=== PATIENT | female | born 1955 | race Caucasian/White ===

== ENCOUNTER → 2018-05-15 | Outpatient (CLI) | payer BC ==
--- NOTE | 2018-05-18 09:16 | MM ---
Reason for exam: screening (asymptomatic). Last mammogram was performed 4 years ago. History: Patient is postmenopausal and had first child at age 46. Benign left mammotome panel of the left breast, October 09, 2007. Took hormonal contraceptives for 2 months beginning at age 22. Physical Findings: A clinical breast exam by your physician is recommended on an annual basis and results should be correlated with mammographic findings. MG 3D Screening Mammo W/Cad Bilateral CC and MLO view(s) were taken. Prior study comparison: May 26, 2014, bilateral MG screening mammo w CAD. October 02, 2012, bilateral digital screening mammo w/CAD. The breast tissue is heterogeneously dense. This may lower the sensitivity of mammography. Previous mammotome biopsy in the left breast. There is no discrete abnormality. No significant changes when compared with prior studies. ASSESSMENT: Benign, BI-RAD 2 RECOMMENDATION: Routine screening mammogram of both breasts in 1 year.
== END | disposition home or self-care (01) ==
LOC: RADMAMWWP 11:38
PROVIDERS: ATTEND Family Medicine
DX: Z12.31 Encounter for screening mammogram for malignant neoplasm of breast (principal)
CPT/HCPCS: 77063; 77067

== ENCOUNTER → 2018-10-06 | Outpatient (CLI) | payer OTHER ==
--- NOTE | 2018-10-06 14:29 | XR ---
EXAMINATION TYPE: XR calcaneus 2V LT DATE OF EXAM: 10/06/2018 COMPARISON: NONE HISTORY: Pain TECHNIQUE: 2 views submitted FINDINGS: There is a moderate-sized plantar calcaneal spur. Osseous structures intact. Joint spaces p reserved. IMPRESSION: Plantar calcaneal spur. Can occasionally be associated with plantar fasciitis correlate c jenniferically.
== END | disposition home or self-care (01) ==
LOC: RADXRMAIN 13:22
PROVIDERS: ATTEND Family Medicine
DX: M72.2 Plantar fascial fibromatosis (principal); M77.32 Calcaneal spur, left foot; M79.673 Pain in unspecified foot

== ENCOUNTER → 2021-04-06 | Outpatient (CLI) | payer OTHER ==
[2021-04-06 17:08] LABS: Basophils # (A) 0.03 X 10*3/uL (0.00-0.10); Basophils % (A) 0.6 %; Eosinophils # (A) 0.24 X 10*3/uL (0.04-0.35); Eosinophils % (A) 4.7 %; HCT 43.5 % (37.2-46.3); Lymphocytes # (A) 1.25 X 10*3/uL (0.90-5.00); Lymphocytes % (A) 24.6 %; MCH 31.6 pg (27.0-32.0); MCHC 32.2 g/dL (32.0-37.0); MCV 98.2 fL (80.0-97.0); Mean Platelet Volume 11.1 fL (9.5-12.2); Monocytes # (A) 0.53 X 10*3/uL (0.20-1.00); Monocytes % (A) 10.4 %; Neutrophils # (A) 3.02 X 10*3/uL (1.80-7.70); Neutrophils % (A) 59.3 %; Platelet Count 203 X 10*3/uL (140-440); RBC 4.43 X 10*6/uL (4.10-5.20); WBC 5.09 X 10*3/uL (4.50-10.00)
[2021-04-06 20:24] LABS: Hemoglobin A1C 4.8 % (4.0-6.0)
[2021-04-06 22:30] LABS: African American GFR (CKD) 68.9 (60.0-200.0); Albumin 4.6 g/dL (3.80-4.90); Bilirubin, Conjugated 0.2 mg/dL (0.20-0.40); Bilirubin,Unconjugated 0.5 mg/dL; Calcium 9.6 mg/dL (8.7-10.3); Chol/HDL Ratio 2.81; Globulin 2.3 g/dL (1.6-3.3); LDL Cholesterol,Calculated 139.4 mg/dL (0.0-131.0); Non-African American GFR(CKD) 59.5 (60.0-200.0); Potassium 4.8 mmol/L (3.5-5.5); Total Bilirubin 0.7 mg/dL (0.2-1.2); Total Protein 6.9 g/dL (6.2-8.2); VLDL Calculation 16.6 mg/dL (5.00-40.00)
== END | disposition home or self-care (01) ==
LOC: LABWHC1 08:35
PROVIDERS: ATTEND Internal Medicine Critical Care Medicine
DX: Z00.00 Encounter for general adult medical examination without abnormal findings (principal); E55.9 Vitamin D deficiency, unspecified; R05 Cough; R53.83 Other fatigue
CPT/HCPCS: 36415; 80053; 80061; 82248; 82306; 83036; 84439; 84443; 85025

== ENCOUNTER → 2021-08-29 | Outpatient (CLI) | payer OTHER ==
--- NOTE | 2021-08-29 13:41 | BD ---
EXAMINATION TYPE: Axial Bone Density DATE OF EXAM: 08/29/2021 COMPARISON: NONE CLINICAL HISTORY: 66 YR OLD FEMALE.......ICD-10 CODE: Z78.0 MENOPAUSAL Height: 63 Weight: 172 FRAX RISK QUESTIONS: Glucocorticoids (More than 3mos): YES, FOR ASTHMA (Ex: prednisone, prednisolone, methylprednisolone, dexamethasone, and hydrocortisone). RISK FACTORS HISTORY OF: Postmenopausal woman: YES, AT 52 YRS OLD Hyperparathyroidism: NO Adrenal Insufficiency: NO MEDICATIONS: Prednisone or other steroids: YES, FOR ASTHMA FOR 10 YRS Additional Medications: CALCIUM ON AND OFF, Additional History: PT VERY VAGUE, NOTHING TO NOTE HERE EXAM MEASUREMENTS: Bone mineral densitometry was performed using the sendwith[employer] System. Bone mineral density as measured about the Lumbar spine is: ----- L1-L4(G/cm2): 1.201 T Score Values are as follows: ----- L1: 0.0 ----- L2: -0.4 ----- L3: 0.5 ----- L4: 0.4 ----- L1-L4: 0.2 Bone mineral density FIRST BONE DENSITY........BASELINE STUDY Bone mineral density about the R hip (g/cm2): 1.164 Bone mineral density about the L hip (g/cm2): 1.123 T Score values are as follows: -----R Neck: 1.0 -----L Neck: 0.7 -----R Total: 1.2 -----L Total: 0.9 Bone mineral density FIRST DEXA SCAN......BASELINE STUDY FRAX%s: THERE IS A 9.1% CHANCE FOR A MAJOR OSTEOPOROTIC FX AND A 0.2% FOR HIPS......PROBABILITY F OR FX IN 10 YRS TIME IMPRESSION: No evidence for osteoporosis or osteopenia at this time. NOTE: T-SCORE=SD OF THE YOUNG ADULT MEAN.
--- NOTE | 2021-08-30 10:15 | MM ---
Reason for exam: screening (asymptomatic). Last mammogram was performed 3 years and 3 months ago. History: Patient is postmenopausal and had first child at age 46. Benign left mammotome panel of the left breast, October 09, 2007. Took hormonal contraceptives for 2 months beginning at age 22. Physical Findings: A clinical breast exam by your physician is recommended on an annual basis and results should be correlated with mammographic findings. MG 3D Screening Mammo W/Cad Bilateral CC and MLO view(s) were taken. Prior study comparison: May 15, 2018, bilateral MG 3d screening mammo w/cad. May 26, 2014, bilateral MG screening mammo w CAD. There are scattered fibroglandular densities. Previous mammotome biopsy in the left breast. No significant changes when compared with prior studies. ASSESSMENT: Negative, BI-RAD 1 RECOMMENDATION: Routine screening mammogram of both breasts in 1 year.
== END | disposition home or self-care (01) ==
LOC: RADMAMWWP 12:34
PROVIDERS: ATTEND Obstetrics & Gynecology
DX: Z12.31 Encounter for screening mammogram for malignant neoplasm of breast (principal); Z78.0 Asymptomatic menopausal state
CPT/HCPCS: 77063; 77067; 77080

== ENCOUNTER → 2022-04-23 | Outpatient (CLI) | payer OTHER ==
--- NOTE | 2022-04-24 12:05 | MR ---
EXAMINATION TYPE: MR brain wo con DATE OF EXAM: 04/23/2022 3:36 PM COMPARISON: CT 03/11/2013 CLINICAL INDICATION:Female, 67 years old with history of R41.3; TECHNIQUE: Multi planar, multi sequence imaging was performed through the brain including: T1, T2, In version recovery, Diffusion weighted imaging, and gradient echo imaging. No gadolinium was given. FINDINGS: The woodruff-white junctions, ventricular system, and cisterns appear unremarkable. Extensive deep and p eriventricular white matter changes, some of which are perpendicularly oriented to the ventricles. Mi dline structures show no abnormality. Diffusion-weighted imaging shows no evidence of restricted diff usion. The susceptibility weighted images do not reveal any evidence for micro-hemorrhage. Some pulsa tion artifact is seen on sagittal T1 weighted imaging. Vascular flow voids are maintained. The bone marrow signal is within normal limits. The paranasal sinuses and globes are unremarkable. Ri ght subcutaneous scalp 10 mm low T1/T2 lesion could represent calcified granuloma IMPRESSION: 1. No evidence of intracranial mass or acute/subacute infarct. 2. Nonspecific white matter changes, some which are perpendicular to the ventricle and artery and the dictation which can be seen in setting of multiple sclerosis demyelination process. Other areas coul d be secondary to small vessel ischemic disease.
--- NOTE | 2022-04-24 12:05 | MR ---
EXAMINATION TYPE: MR angio head wo con DATE OF EXAM: 04/23/2022 3:36 PM CLINICAL INDICATION:Female, 67 years old with history of R41.3; COMPARISON: Same day MRI brain and CT brain 03/11/2013. Technical: 3-D [id number] Axial with MIP reconstruction. IV Contrast: None Findings: Vertebral arteries: The vertebral arteries are patent. The codominant vertebral arteries. Basilar artery: The basilar artery is intact. The basilar artery bifurcation is normal. Internal Carotid arteries: The cervical, petrous, cavernous and supraclinoid segments are normal. ANISH: Patent with no evidence of aneurysm. Anatomic variant 3 anterior cerebral arteries. ACOM: Present without evidence of aneurysm. MCA: Patent with no evidence of aneurysm. QUALITY CONTROL AUDITOR: Patent with no evidence of aneurysm. origin of the right posterior cerebral artery. PCOM: Hypoplastic right. IMPRESSION: No evidence of aneurysm or significant stenosis.
== END | disposition home or self-care (01) ==
LOC: RADMRIMAIN 14:39
PROVIDERS: ATTEND Psychiatry & Neurology Neurology
DX: G35 Multiple sclerosis (principal); G31.9 Degenerative disease of nervous system, unspecified; Z87.820 Personal history of traumatic brain injury
CPT/HCPCS: 70544; 70551

== ENCOUNTER 2022-06-27 10:21 | Day surgery (SDC) | payer OTHER ==
[2022-06-12 10:39] VITALS: BMI 24.9
[2022-06-27] MEDS ORDERED: LACTATED RINGERS 1,000 ML IV SCH (10:23)
[2022-06-27 10:41] VITALS: TEMP 98.4
[2022-06-27] MEDS ORDERED: IV FLUID CONTINUATION 1,000 ML IV ONE (11:27)
--- NOTE | 2022-06-27 11:27 | P.PCN ---
Date of Procedure: 06/27/22 Procedure(s) Performed: Preoperative diagnosis: Multiple sclerosis Post operative diagnoses: Multiple sclerosis Procedure= lumbar puncture Anesthesia= local infiltration with lidocaine 1% 3 mL only. Condition: stable Complication: none. Description of the procedure procedure risk and benefits discussed with the patient and family, consent signed. Patient and the procedure area placed in sitting position , back prepped with chlorhexidine 3 times been local infiltration of the skin and subcutaneous tissue with lidocaine 1% 2 mL for skin and subcu interstitial frustrations at L4 5 levels then 22-gauge Quincke-type needle advanced slowly at L4- 5 interlaminar space there was positive cerebrospinal fluid which was clear, no heme, no paresthesia ,total of 8 ML of clear cerebrospinal fluid collected in 4 different tubes 2 mL in each, then the needle removed and a Band-Aid applied and patient tolerated the procedure well without any complications.
[2022-06-27 11:31] VITALS: RESP 16
[2022-06-27 11:54] VITALS: BP 149/78; PULSE 62
[2022-06-27 12:59] LABS: ALT 23 U/L (4-34); AST 25 U/L (14-36)
[2022-06-27 13:11] LABS: Glucose,CSF 61 mg/dL (40-70); Total Protein,CSF 62 mg/dL (12-60)
[2022-06-27 13:17] LABS: T4, Free (Free Thyroxine) 1.15 ng/dL (0.78-2.19)
[2022-06-27 15:03] LABS: Appearance,CSF Clear; CSF Tube Number 4
[2022-06-27 15:04] LABS: Nucleated Cells, CSF 0 u/L (0-5); Red Blood Cell,CSF 7 u/L (0-10)
[2022-06-28 01:26] LABS: Anti-DNA, DS unit <1.0 IU/mL; Anti-Smith Ab Interp NEGATIVE (NEGATIVE); DNA Double-Stranded NEGATIVE (NEGATIVE)
[2022-06-29 00:22] LABS: Rheumatoid Factor, Qnt <10 IU/mL (0-15)
[2022-07-01 13:30] LABS: Lyme IgG/IgM 0.05 Index
[2022-07-01 13:46] LABS: IgG - CSF 2.2 mg/dL (0.0 - 3.4); Immunoglobulin G 790 mg/dL (700 - 1600)
== END 2022-06-27 12:46 | disposition home or self-care (01) ==
LOC: ORPAIN 10:21
PROVIDERS: ATTEND Specialist
DX: G35 Multiple sclerosis (principal)
CPT/HCPCS: 62270; 82040; 82042; 82784; 82945; 83873; 83916; 84157; 84439; 84443; 84450; 84460; 86038; 86225; 86235; 86431; 86618; 86780; 87801; 88108; 89050

== ENCOUNTER → 2022-10-29 | Outpatient (CLI) | payer OTHER | END | disposition home or self-care (01) | LOC: LABWHC1 13:19 | DX: R41.0 Disorientation, unspecified (principal) | CPT/HCPCS: 36415; 82607; 82746; 84443 ==

== ENCOUNTER → 2022-11-01 | Outpatient (CLI) | payer OTHER | END | disposition home or self-care (01) | LOC: LABWHC1 14:00 | PROVIDERS: ATTEND Psychiatry & Neurology Neurology | DX: R41.0 Disorientation, unspecified (principal) | CPT/HCPCS: 36415 ==

== ENCOUNTER → 2023-03-04 | Outpatient (CLI) | payer OTHER ==
--- NOTE | 2023-03-04 12:53 | XR ---
EXAMINATION TYPE: XR chest 2V DATE OF EXAM: 03/04/2023 12:47 PM COMPARISON: None TECHNIQUE: XR chest 2V Frontal and lateral views of the chest. CLINICAL INDICATION:Female, 67 years old with history of C54.1 MALIGNANT NEOPLASM OF ENDOMETRIUM; FINDINGS: Lungs/Pleura: There is no evidence of pleural effusion, focal consolidation, or pneumothorax. Pulmonary vascularity: Unremarkable. Heart/mediastinum: Cardiomediastinal silhouette is unremarkable. Musculoskeletal: No acute osseous pathology. IMPRESSION: No acute cardiopulmonary disease/process.
[2023-03-04 13:01] LABS: African American GFR (CKD) >90 (>60 ml/min/1.73 sqM); Blood Urea Nitrogen 21 mg/dL (7-17); Non-African American GFR(CKD) >90 (>60 ml/min/1.73 sqM)
--- NOTE | 2023-03-04 17:00 | CT ---
EXAMINATION TYPE: CT ChestAbdPelvis wo/w con CT DLP: 794.9 mGycm, Automated exposure control for dose reduction was used. DATE OF EXAM: 03/04/2023 3:13 PM COMPARISON: None. CLINICAL INDICATION:Female, 67 years old with history of C54.1 MALIGNANT NEOPLASM OF ENDOMETRIUM;, en dometrial ca Technique: Multiple axial images of the chest, abdomen, and pelvis were obtained. Two-dimensional cor onal and sagittal reconstructions were obtained. Contrast used:100 mL of Isovue 300 without and with IV Contrast, Oral contrast used: with Oral Contrast Findings: CHEST: LUNGS/ PLEURA: No focal consolidation, pneumothorax or pleural effusion. AIRWAY: Patent and unremarkable. HEART: Size within normal limits. MEDIASTINUM: No gross evidence of adenopathy. VASCULATURE: No aortic aneurysm. MUSCULOSKELETAL: No acute osseous abnormalities. SOFT TISSUES/LYMPH NODES: Unremarkable. LOWER NECK: No significant findings. ABDOMEN: ABDOMEN LIVER: Unremarkable GALLBLADDER AND BILE DUCTS: Unremarkable. PANCREAS: Unremarkable. SPLEEN: Unremarkable. ADRENAL GLANDS: Unremarkable. KIDNEYS AND URETERS: Left hydroureter and mild left hydronephrosis. There is a left obstructing 3 mm calculus. PELVIS BLADDER: Hyperemic urinary bladder with trabeculated valentino. REPRODUCTIVE: Unremarkable. ABDOMEN & PELVIS STOMACH AND BOWEL: No evidence of bowel obstruction. PERITONEUM: No evidence of pneumoperitoneum or free fluid. VASCULATURE: No evidence of aortic aneurysm. MUSCULOSKELETAL: No acute osseous abnormalities LYMPH NODES: Lymph nodes in the retroperitoneum are present there are enlarged example includes 14 mm in short axis series 6 image 80 right external iliac lymph node 10 mm in short axis series 6 image 7 7 left common iliac lymph node. Additional external iliac lymph nodes are present which are suspiciou s including 7 mm right and 5 mm left which demonstrate hyperenhancement. SOFT TISSUE/ABDOMINAL WALL: Unremarkable IMPRESSION: 1. Endometrial heterogenous appearance compatible with provided history of malignancy. Multiple retr operitoneal lymph nodes which are suspicious for metastatic disease. No evidence for metastatic disea se above the diaphragm. 2. Moderate left hydroureteronephrosis. No obstructing calculus visualized. Correlate for ureter out let obstruction. 3. Nonobstructing left renal calculus. 4. Likely related to bladder valentino correlate with urinalysis for cystitis.
== END | disposition home or self-care (01) ==
LOC: RADCTMAIN 12:15
PROVIDERS: ATTEND Nurse Practitioner Family
DX: C54.1 Malignant neoplasm of endometrium (principal); N13.2 Hydronephrosis with renal and ureteral calculous obstruction
CPT/HCPCS: 82565; 84520; 71046; 71270; 74178; 36415; Q9967

== ENCOUNTER 2023-03-08 19:06 | Emergency (ER) | payer OTHER ==
[2023-03-08 19:24] VITALS: RESP 18
--- NOTE | 2023-03-08 20:12 | ED ---
General Adult HPI - General Chief complaint: Urogenital Stated complaint: blood in urine Time Seen by Provider: 03/08/23 19:36 Source: patient, RN notes reviewed Mode of arrival: ambulatory Limitations: no limitations - History of Present Illness Initial comments: Patient is a 67-year-old female presents the emergency room with her spouse with concerns regarding multiple complaints including darkening of her urine in her Rios catheter over the last 24 hours and an episode of blood in her urine as well. She underwent surgery at [facility] on March 06 and postoperatively had difficulty urinating/urinary retention consequently discharged with a Rios catheter. The is also concerned regarding a choking event that occurred yesterday evening and when she does not believe she aspirated but she was blue for a brief time and approximated well afterwards. EMS was on the scene and they declined evaluation at that time. He is also concerned regarding bloating to her abdomen but denies any episodes of vomiting or diarrhea. She was passing gas in the hospital and has not had a bowel movement since surgery. Unfortunately communication is limited due to advanced frontal temporal lobe dementia. He denies any drainage from her incision sites, continuous hematuria, changes in her baseline behavior, or fevers. - Related Data Home Medications Medication Instructions Recorded Confirmed amLODIPine [Norvasc] 5 mg PO HS 06/12/22 11/06/22 Albuterol Inhaler [Ventolin Hfa 1 puff INHALATION DAILY PRN 06/14/22 11/06/22 Inhaler] Cyanocobalamin (Vitamin B-12) 1,000 mcg PO DAILY 06/25/22 11/06/22 [Vitamin B-12] Neuriva 1 tab PO DAILY 06/25/22 11/06/22 Previous Rx's Medication Instructions Recorded Sulfamethox-Tmp 800-160Mg [Bactrim 1 tab PO Q12HR 5 Days #10 tab 03/08/23 DS 800-160 mg] Allergies Allergy/AdvReac Type Severity Reaction Status Date / Time No Known Allergies Allergy Verified 03/08/23 19:24 Review of Systems ROS Statement: Those systems with pertinent positive or pertinent negative responses have been documented in the HPI. ROS Other: All systems not noted in ROS Statement are negative. Past Medical History Past Medical History: Cancer, Hypertension, Memory Impairment Additional Past Medical History / Comment(s): RECENT ISSUES WITH COGNITIVE IMP AIRMENT, COMMUNICATION ISSUES, MEMORY ISSUES AND FOCUS-BEING WORKED UP WITH NEUROLOGIST. POSSIBLE MS. History of Any Multi-Drug Resistant Organisms: None Reported Past Surgical History: Hysterectomy, Tonsillectomy Past Anesthesia/Blood Transfusion Reactions: No Reported Reaction Past Psychological History: No Psychological Hx Reported Smoking Status: Never smoker Past Alcohol Use History: Occasional Past Drug Use History: None Reported General Exam Limitations: altered mental status General appearance: alert Head exam: Present: atraumatic, normocephalic, normal inspection Eye exam: Present: normal appearance, PERRL, EOMI. Absent: scleral icterus, conjunctival injection, periorbital swelling ENT exam: Present: normal exam, mucous membranes moist Neck exam: Present: normal inspection, full ROM Respiratory exam: Present: normal lung sounds bilaterally. Absent: respiratory distress, wheezes, rales, rhonchi, stridor Cardiovascular Exam: Present: regular rate, normal rhythm, normal heart sounds. Absent: systolic murmur, diastolic murmur, rubs, gallop, clicks GI/Abdominal exam: Present: soft, normal bowel sounds, other (Laparoscopic abdominal incision 4 well approximated). Absent: distended, tenderness, guarding, rebound, rigid Rectal exam: Present: deferred External exam: Present: other (Rios catheter intact with leg bag clear yellow urine) Extremities exam: Present: normal inspection. Absent: pedal edema, joint swelling Back exam: Present: normal inspection Neurological exam: Present: alert Expanded Patient oriented to: Present: person. Absent: place, time Speech: Present: fluid speech (Speech limited but fluid) Psychiatric exam: Present: flat affect Skin exam: Present: other (Healing abdominal incisions as above) Course Vital Signs 03/08/23 03/08/23 19:22 21:39 Temperature 99.2 F 97.9 F Pulse Rate 70 78 Respiratory 18 18 Rate Blood Pressure 150/83 138/73 O2 Sat by Pulse 100 98 Oximetry Medical Decision Making - Medical Decision Making Was pt. sent in by a medical professional or institution (, PA, DIRECTOR OF BUSINESS DEVELOPMENT, urgent care, hospital, or fci...) When possible be specific @ -No Did you speak to anyone other than the patient for history (EMS, parent, family, police, friend...)? What history was obtained from this source @ -Yes all information including past medical history, current medications and presenting illness received from due to patient's frontal temporal lobe pneumonia see HPI for details. Did you review nursing and triage notes (agree or disagree)? Why? @ -I reviewed and agree with nursing and triage notes except for multiple complaints as listed in HPI. Were old charts reviewed (outside hosp., previous admission, EMS record, old EKG, old radiological studies, urgent care reports/EKG's, fci records)? Report findings @ -Yes, discharge instructions and medications per list from [facility] with patient and spouse were reviewed. Differential Diagnosis (chest pain, altered mental status, abdominal pain women, abdominal pain men, vaginal bleeding, weakness, fever, dyspnea, syncope, headac he, dizziness, GI bleed, back pain, seizure, CVA, palpatations, mental health, musculoskeletal)? @ -Differential Abdominal Pain Women: Appendicitis, Cholecystitis, diverticulosis, ischemic bowel, pancreatitis, hepatitis, UTI, gastroenteritis, AAA, incarcerated hernia, bowel obstruction, constipation, inflammatory bowel, hepatitis, peptic ulcer disease, splenic infarction, perforated viscus, vulvitis, ovarian torsion, PID, kidney stone, placenta abruption, this is not meant to be an all-inclusive list EKG interpreted by me (3pts min.). @ -None done X-rays interpreted by me (1pt min.). @ -Chest x-ray: no acute cardiopulmonary process. No consolidation, infiltrate or cardiomegaly. KUB: no evidence of obstruction per radiologist a small amount of free air intraperitoneal below the hemidiaphragms called to Dr. Stokes which is consistent with recent intra-abdominal surgery. CT interpreted by me (1pt min.). @ None done U/S interpreted by me (1pt. min.). @ -None done What testing was considered but not performed or refused? (CT, X-rays, U/S, labs)? Why? @ -None What meds were considered but not given or refused? Why? @ -None Did you discuss the management of the patient with other professionals (professionals i.e. , PA, DIRECTOR OF BUSINESS DEVELOPMENT, lab, RT, psych nurse, social media assistant, automation lead, teacher, finance officer, case management associate)? Give summary @ -No Was smoking cessation discussed for >3mins.? @ -No Was critical care preformed (if so, how long)? @ -No Were there social determinants of health that impacted care today? How? (Homelessness, low income, unemployed, alcoholism, drug addiction, transportation, low edu. Level, literacy, decrease access to med. care, skilled nursing, rehab)? @ -No Was there de-escalation of care discussed even if they declined (Discuss DNR or withdrawal of care, Hospice)? DNR status @ -No What co-morbidities impacted this encounter? (DM, HTN, Smoking, COPD, CAD, Cancer, CVA, ARF, Chemo, Hep., AIDS, mental health diagnosis, sleep apnea, morbid obesity)? @ -None Was patient admitted / discharged? Hospital course, mention meds given and route, prescriptions, significant lab abnormalities, going to OR and other pertinent info. @ --67-year-old female presents the emergency room with her spouse with concerns regarding multiple complaints including darkening of her urine in her Rios catheter over the last 24 hours and an episode of blood in her urine as well. She underwent surgery at [facility] on March 06 and postoperatively had difficulty urinating/urinary retention consequently discharged with a Rios catheter. The is also concerned regarding a choking event that occurred yesterday evening and when she does not believe she aspirated but she was blue for a brief time and approximated well afterwards. EMS was on the scene and they declined evaluation at that time. He is also concerned regarding bloating to her abdomen but denies any episodes of vomiting or diarrhea. Will start workup regarding each of these concerns with a chest x- ray, KUB, CBC, CMP and urinalysis. No indication for any medication administration at this time. Chest x-ray and KUB without concerning abnormalities. Laboratory studies with no significant abnormalities on CBC. CMP showed slightly elevated BUN 23 with normal creatinine and sodium level low at 131 with other electrolytes stable. AST and ALTs slightly elevated with normal alkaline phosphatase. Urinalysis shows large blood and moderate leukocyte esterase urine RBC is a 59 urine WBCs at 13 urine squamous cell epithelials less than 1, amorphus sediment rare, occasional bacteria, rare mucus. Leukocytes and bacteria could possibly be contaminant from blood and catheter contaminant however will proceed with treatment for urinary tract infection. All these findings were discussed above with spouse and patient. Questions and concerns of spouse answered. Return parameters to the emergency room discussed. Will discharge home in stable condition in the care of patient's spouse on oral antibiotic therapy for urinary tract infection advising follow-up with urologist specialist as scheduled along with primary care provider as needed. Undiagnosed new problem with uncertain prognosis? @ -No Drug Therapy requiring intensive monitoring for toxicity (Heparin, Nitro, Insulin, Cardizem)? @ -No Were any procedures done? @ -No Diagnosis/symptom? @ -UTI Acute, or Chronic, or Acute on Chronic? @ -Acute Uncomplicated (without systemic symptoms) or Complicated (systemic symptoms)? @ -Uncomplicated Side effects of treatment? @ -No Exacerbation, Progression, or Severe Exacerbation? @ -No Poses a threat to life or bodily function? How? (Chest pain, [place], VA, pneumonia, PE, COPD, DKA, ARF, appy, cholecystitis, CVA, Diverticulitis, Homicidal, Suicidal, threat to staff... and all critical care pts) @ -No Case discussed with Dr. Stokes - Lab Data Result diagrams: 03/08/23 20:06 03/08/23 20:06 Lab Results 03/08/23 03/08/23 03/08/23 Range/Units 20:06 20:06 20:30 WBC 7.7 (3.8-10.6) k/uL RBC 3.77 L (3.80-5.40) m/uL Hgb 12.2 (11.4-16.0) gm/dL Hct 36.2 (34.0-46.0) % MCV 96.1 (80.0-100.0) fL MCH 32.3 (25.0-35.0) pg MCHC 33.6 (31.0-37.0) g/dL RDW 11.9 (11.5-15.5) % Plt Count 203 (150-450) k/uL MPV 7.9 Neutrophils % 74 % Lymphocytes % 16 % Monocytes % 6 % Eosinophils % 4 % Basophils % 0 % Neutrophils # 5.7 (1.3-7.7) k/uL Lymphocytes # 1.2 (1.0-4.8) k/uL Monocytes # 0.5 (0-1.0) k/uL Eosinophils # 0.3 (0-0.7) k/uL Basophils # 0.0 (0-0.2) k/uL Sodium 135 L (137-145) mmol/L Potassium 4.1 (3.5-5.1) mmol/L Chloride 103 (98-107) mmol/L Carbon Dioxide 30 (22-30) mmol/L Anion Gap 2 mmol/L BUN 23 H (7-17) mg/dL Creatinine 0.79 (0.52-1.04) mg/dL Est GFR (CKD-EPI)AfAm >90 (>60 ml/min/1.73 sqM) Est GFR (CKD-EPI)NonAf 80 (>60 ml/min/1.73 sqM) Glucose 101 H (74-99) mg/dL Calcium 8.6 (8.4-10.2) mg/dL Total Bilirubin 0.5 (0.2-1.3) mg/dL AST 46 H (14-36) U/L ALT 45 H (4-34) U/L Alkaline Phosphatase 76 (38-126) U/L Total Protein 5.8 L (6.3-8.2) g/dL Albumin 3.2 L (3.5-5.0) g/dL Urine Color Light Yellow Urine Appearance Clear (Clear) Urine pH 6.5 (5.0-8.0) Ur Specific [place] 1.011 (1.001-1.035) Urine Protein Negative (Negative) Urine Glucose (UA) Negative (Negative) Urine Ketones Negative (Negative) Urine Blood Large H (Negative) Urine Nitrite Negative (Negative) Urine Bilirubin Negative (Negative) Urine Urobilinogen <2.0 (<2.0) mg/dL Ur Leukocyte Esterase Moderate H (Negative) Urine RBC 59 H (0-5) /hpf Urine WBC 13 H (0-5) /hpf Ur Squamous Epith Cells <1 (0-4) /hpf Amorphous Sediment Rare H (None) /hpf Urine Bacteria Occasional H (None) /hpf Hyaline Casts 1 (0-2) /lpf Urine Mucus Rare H (None) /hpf - Radiology Data Radiology results: report reviewed, image reviewed Disposition Clinical Impression: Urinary tract infection Disposition: HOME SELF-CARE Condition: Stable Instructions (If sedation given, give patient instructions): Urinary Tract Infection in Women (ED) Additional Instructions: Complete course of antibiotic as prescribed. Stay well hydrated. Continue good catheter care. Please follow-up with your urology specialists as scheduled. Ple ase return to the Emergency Department if symptoms worsen or any other concerns. Prescriptions: Sulfamethox-Tmp 800-160Mg [Bactrim DS 800-160 mg] 1 tab PO Q12HR 5 Days #10 tab Is patient prescribed a controlled substance at d/c from ED?: No Referrals: Mario Alberto Scherer MD [Primary Care Provider] - 1-2 days Time of Disposition: 21:28
[2023-03-08 20:33] LABS: Basophils % (A) 0 %; Eosinophils # (A) 0.3 k/uL (0-0.7); Eosinophils % (A) 4 %; HCT 36.2 % (34.0-46.0); HGB 12.2 gm/dL (11.4-16.0); Lymphocytes # (A) 1.2 k/uL (1.0-4.8); Lymphocytes % (A) 16 %; MCH 32.3 pg (25.0-35.0); MCHC 33.6 g/dL (31.0-37.0); MCV 96.1 fL (80.0-100.0); Mean Platelet Volume 7.9; Monocytes # (A) 0.5 k/uL (0-1.0); Monocytes % (A) 6 %; Neutrophils # (A) 5.7 k/uL (1.3-7.7); Neutrophils % (A) 74 %; Platelet Count 203 k/uL (150-450); RBC 3.77 m/uL (3.80-5.40); RDW 11.9 % (11.5-15.5); WBC 7.7 k/uL (3.8-10.6)
[2023-03-08 20:43] LABS: ALT 45 U/L (4-34); AST 46 U/L (14-36); African American GFR (CKD) >90 (>60 ml/min/1.73 sqM); Albumin 3.2 g/dL (3.5-5.0); Alkaline Phosphatase 76 U/L (38-126); Anion Gap 2 mmol/L; Blood Urea Nitrogen 23 mg/dL (7-17); Calcium 8.6 mg/dL (8.4-10.2); Carbon Dioxide 30 mmol/L (22-30); Chloride 103 mmol/L (98-107); Glucose 101 mg/dL (74-99); Non-African American GFR(CKD) 80 (>60 ml/min/1.73 sqM); Potassium 4.1 mmol/L (3.5-5.1); Sodium 135 mmol/L (137-145); Total Bilirubin 0.5 mg/dL (0.2-1.3); Total Protein 5.8 g/dL (6.3-8.2)
[2023-03-08 20:48] LABS: Amorphous Sediment,Urine Rare /hpf; Appearance,Urine Clear (Clear); Bacteria,Urine Occasional /hpf; Bilirubin,Urine Negative (Negative); Blood,Urine Large (Negative); Color,Urine Light Yellow; Glucose,Urine (UA) Negative (Negative); Hyaline Casts,Urine 1 /lpf (0-2); Ketones,Urine Negative (Negative); Leukocyte Esterase,Urine Moderate (Negative); Mucus,Urine Rare /hpf; Nitrite,Urine Negative (Negative); PH, Urine 6.5 (5.0-8.0); Protein,Urine Negative (Negative); RBC,Urine 59 /hpf (0-5); Specific Gravity,Urine 1.011 (1.001-1.035); Squamous Epithelial Cell,Urine <1 /hpf (0-4); Urobilinogen,Urine <2.0 mg/dL (<2.0); WBC,Urine 13 /hpf (0-5)
--- NOTE | 2023-03-08 21:08 | XR ---
EXAMINATION TYPE: XR chest 1V, XR KUB DATE OF EXAM: 03/08/2023 COMPARISON: 03/04/2023 HISTORY: 67-year-old female with recent choking, shortness of breath FINDINGS: CHEST: Heart normal size. Aorta and pulmonary vasculature within normal limits. No consolidation, pne umothorax, or pleural effusion. Degenerative change of both shoulders. ABDOMEN: There appears to be trace air below both hemidiaphragms. Oral contrast material remains scat tered throughout the colon. No dilated small bowel is seen. Mild overall stool burden. No suspicious calcifications. Numerous pelvic phleboliths. IMPRESSION: 1. Chest: No acute cardiopulmonary process. 2. Abdomen: There appears to be small amount of free intraperitoneal air below both hemidiaphragms. C magan to Dr. Stokes in the ER at 9:00 PM. Additional history that the patient is recently postop 2 d ays ago.
[2023-03-08 21:40] VITALS: BP 138/73; PULSE 78; TEMP 97.9
== END 2023-03-08 21:39 | disposition home or self-care (01) ==
LOC: EC 19:06
DX: N39.0 Urinary tract infection, site not specified (principal); I10 Essential (primary) hypertension; Z79.899 Other long term (current) drug therapy
CPT/HCPCS: 36415; 71045; 74018; 80053; 81001; 85025; 87086; 99284

== ENCOUNTER → 2023-03-18 | Outpatient (CLI) | payer OTHER ==
--- NOTE | 2023-03-18 11:59 | FL ---
INDICATION: Patient age:Female; 67 years old; Reason for study: R09.89 CHOKING EPISODE F03.90 DEMENTIA; PHH. COMPARISON: None TECHNIQUE: Utilizing real-time video recording fluoroscopy, multiple images were obtained after admin istration of various consistencies of barium contrast.. A speech pathologist was present throughout t he exam. Fluoroscopic time: 1 minute 10 seconds Fluoroscopic images: None saved Total DAP: Unable to obtain due to how old the machine is. FINDINGS: Consistencies administered: Pudding, thick, thin, and cracker barium. During the oral phase there is normal formation of food bolus with normal initiation of swallow with all consistencies. Premature spill: All consistencies. Laryngeal penetration: Transient silent penetration with thin consistency. Piriform Retention:None identified Vallecular retention: None identified. Nasopharyngeal reflux: None identified. Tracheal aspiration: None identified. IMPRESSION: 1. No evidence of tracheal aspiration. 2. Transient silent penetration with thin consistency. 3. Premature spill with all consistencies. Please see dedicated speech pathology report for additional information.
== END | disposition home or self-care (01) ==
LOC: RADFLMAIN 10:55
PROVIDERS: ATTEND Family Medicine
DX: F03.90 Unspecified dementia, unspecified severity, without behavioral disturbance, psychotic disturbance, mood disturbance, and anxiety (principal); R09.89 Other specified symptoms and signs involving the circulatory and respiratory systems
CPT/HCPCS: 74230

== ENCOUNTER → 2023-08-14 | Outpatient (CLI) | payer OTHER ==
[2023-08-14 11:48] LABS: African American GFR (CKD) >90 (>60 ml/min/1.73 sqM); Blood Urea Nitrogen 20 mg/dL (7-17); Non-African American GFR(CKD) >90 (>60 ml/min/1.73 sqM)
--- NOTE | 2023-08-14 14:52 | CT ---
EXAMINATION TYPE: CT abdomen pelvis wo/w con DATE OF EXAM: 08/14/2023 HISTORY: MALIGNANT NEOPLASM OF ENDOMETRIUM CT DLP: 1811mGycm Automated Exposure Control for Dose Reduction was Utilized. CONTRAST: CT scan of the abdomen and pelvis is performed with oral and without and with IV Contrast, patient in jected with 100ml mL of Isovue 300. COMPARISON: Prior CT March 04, 2023 FINDINGS: LUNG BASES: Coronary artery calcification is redemonstrated. LIVER/GB: Contracted gallbladder. PANCREAS: No significant abnormality is seen. SPLEEN: No significant abnormality is seen. ADRENALS: No significant abnormality is seen. KIDNEYS: There is 10 mm nonobstructing calculus lower pole left kidney coronal image 53 redemonstrate d. Symmetric cortical medullary uptake and excretion. Stable moderate to severe left-sided hydronephr osis without delayed excretion. BOWEL: Oral contrast does not reach level of the terminal ileum. No abnormal small or large bowel dil atation. UTERUS/ADNEXA: Uterus is now surgically absent. Scattered small bilateral pelvic phleboliths. LYMPH NODES: Nonspecific prominent but subcentimeter lymph nodes throughout the retroperitoneum are r edemonstrated. No new or enlarging greater than 1 cm adenopathy is seen. OSSEOUS STRUCTURES: No significant abnormality is seen. OTHER: No significant additional abnormality is seen. IMPRESSION: Interval hysterectomy. No suspicious new or enlarging mass or adenopathy identified to cantor ggest metastatic disease. Stable prominent but subcentimeter retroperitoneal lymph nodes are noted.
== END | disposition home or self-care (01) ==
LOC: RADCTMAIN 11:03
PROVIDERS: ATTEND Radiology Radiation Oncology
DX: C77.5 Secondary and unspecified malignant neoplasm of intrapelvic lymph nodes (principal); C54.1 Malignant neoplasm of endometrium; Z90.710 Acquired absence of both cervix and uterus
CPT/HCPCS: 82565; 84520; 74178; 36415; Q9967

== ENCOUNTER → 2024-05-19 | Outpatient (CLI) | payer OTHER ==
--- NOTE | 2024-05-19 12:49 | FL ---
EXAMINATION TYPE: FL barium swallow w video DATE OF EXAM: 05/19/2024 CLINICAL HISTORY: 69-year-old female are 1 3.10 Dysphagia. Patient with frontotemporal dementia and s tatus post treatment for uterine cancer. TECHNIQUE: Deglutition study is performed utilizing thin liquid barium, barium thick pudding, and cr ushed solid cracker consistencies. Total fluoroscopy time 3 minutes. Total images: None. Real-time fluoroscopy support was provided to speech pathology. Total DAP: 100 mGycm2. COMPARISON: None. FINDINGS: There is oral holding with markedly decreased time for AP transit of bolus and severe swallow delay w ith progressive free spillage into first the vallecular space is followed by the piriform sinuses. After eventual swallows, residuals remain in the vallecular space and piriform sinuses but no penetra tion or aspiration is encountered. IMPRESSION: Oral holding and severe swallow delay. There is progressive free spillage to fill first the vallecula r space followed by the piriform sinuses. After the eventual swallow, prominent residuals remain but no penetration or aspiration is seen. Please refer to speech therapist notes for further details if necessary. [facility], , 05/19/2024 12:46 PM
== END | disposition home or self-care (01) ==
LOC: RADFLMAIN 11:35
PROVIDERS: ATTEND Family Medicine
CPT/HCPCS: 74230